=== PATIENT | female | born 1970 | race American Indian/Alaskan Native ===

== ENCOUNTER 2017-06-21 08:31 | Outpatient (CLI) | payer BC ==
--- NOTE | 2017-06-21 09:42 | Cat Scan Report ---
CT HEAD WITHOUT CONTRAST: 06/21/17 08:31:00 CLINICAL: Headache. TECHNIQUE: 2.5-mm noncontrast scans. COMPARISON:None FINDINGS: The ventricles and sulci are normal for age. No abnormal density. No mass or mass effect. No hemorrhage, edema or extra-axial collection. The sinuses and mastoids are clear. Normal orbits and soft tissues. The calvarium and skull base are intact. A right paramedian defect in the anterior ring of C1 is either a remote fracture or congenital anomaly. IMPRESSION: No acute change. 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
== END 2017-06-21 08:32 | disposition home or self-care (01) ==
LOC: SPVIMAG 08:31
PROVIDERS: ATTEND Internal Medicine
DX: R51 Headache (principal)
CPT/HCPCS: 70450

== ENCOUNTER 2019-02-23 02:19 | Emergency (ER) | payer BC ==
[2019-02-23 04:37] LABS: Basophils % (Auto) 0.7 % (0.0-1.8); Eosinophils % (Auto) 0.5 % (0.0-4.3); Hematocrit 39.1 % (30.3-42.9); Hemoglobin 12.7 gm/dl (10.1-14.3); Lymphocytes # (Auto) 1.3 K/mm3 (1.2-5.4); Lymphocytes % (Auto) 37.3 % (13.4-35.0); Mean Corpuscular HGB Conc 33 % (30-34); Mean Corpuscular Volume 87 fl (79-97); Monocytes # (Auto) 0.4 K/mm3 (0.0-0.8); Monocytes % (Auto) 10.7 % (0.0-7.3); Platelet Count 200 K/mm3 (140-440); Red Blood Count 4.51 M/mm3 (3.65-5.03); Red Cell Distribution Width 12.5 % (13.2-15.2)
[2019-02-23 04:47] LABS: INR 1.12 (0.87-1.13)
[2019-02-23 04:51] LABS: Creatine Kinase MB 1.4 ng/mL (0.0-4.0)
[2019-02-23 04:53] LABS: Bilirubin,Urine NEG (Negative); Blood,Urine SM (Negative); Color,Urine Straw (Yellow); Protein,Urine <15 mg/dL mg/dL (Negative); Urobilinogen,Urine < 2.0 mg/dL (<2.0)
[2019-02-23 04:55] LABS: BUN/Creatinine Ratio 16; Blood Urea Nitrogen 11 mg/dL (7-17); Calcium 8.8 mg/dL (8.4-10.2); Hemolysis Index 3
--- NOTE | 2019-02-23 06:42 | Emergency Department Report ---
ED Chest Pain HPI - General Chief Complaint: Chest Pain Stated Complaint: CHEST TIGHTNESS/CHILLS Time Seen by Provider: 02/23/19 06:26 Source: patient Mode of arrival: Ambulatory Limitations: No Limitations - History of Present Illness Initial Comments: Plan 9-year-old female with no previous medical history presents to ED with 1 week history of intermittent chest tightness. Patient reports she traveled to [place] and [facility] last week. While there she began to experience numbness and tingling to the right face and arm, and then she later experienced chest tightness. Patient states these episodes last approximately 10 minutes. Patient denies shortness of breath. Reports associated palpitations, dizziness, feeling as if she is going to pass out. The patient denies any weakness in the right arm, numbness or weakness in her legs, slurred speech or facial droop during these episodes. Patient does report a dull pain in the upper left thigh which is been present before her trip to [facility], however denies any leg swelling. MD Complaint: chest pain -: week(s) (1) Onset: during rest Pain Location: substernal Pain Radiation: none Severity: moderate Severity scale (0 -10): 9 Quality: tightness Consistency: intermittent Improves With: nothing Worsens With: nothing re: denies: nausea, vomting, diaphoresis, dyspnea - Related Data Previous Rx's Medication Instructions Recorded Last Taken Type Terconazole [Terazol 7] 7 applic VG QDAY #7 cream.appl 04/19/18 Unknown Rx metroNIDAZOLE [Flagyl] 500 mg PO Q8HR 7 Days #21 tablet 04/19/18 Unknown Rx Allergies Allergy/AdvReac Type Severity Reaction Status Date / Time No Known Allergies Allergy Unverified 11/25/14 15:30 Heart Score - HEART Score History: Slightly suspicious EKG: Normal Age: 45-65 Risk factors: No known risk factors Troponin: < normal limit HEART Score: 1 ED Review of Systems ROS: Stated complaint: CHEST TIGHTNESS/CHILLS Other details as noted in HPI Comment: All other systems reviewed and negative Constitutional: denies: chills, fever Respiratory: denies: shortness of breath Cardiovascular: chest pain, palpitations Gastrointestinal: denies: abdominal pain, nausea, vomiting Musculoskeletal: other (reports leg pain; denies leg swelling) Neurological: paresthesias. denies: weakness ED Past Medical Hx - Past Medical History Previous Medical History?: No - Surgical History Past Surgical History?: Yes Additional Surgical History: cyst removed from breast - Social History Smoking Status: Never Smoker Substance Use Type: None - Medications Home Medications: Home Medications Medication Instructions Recorded Confirmed Last Taken Type Terconazole [Terazol 7] 7 applic VG QDAY #7 cream.appl 04/19/18 Unknown Rx metroNIDAZOLE [Flagyl] 500 mg PO Q8HR 7 Days #21 tablet 04/19/18 Unknown Rx ED Physical Exam - General Limitations: No Limitations General appearance: alert, in no apparent distress - Head Head exam: Present: atraumatic, normocephalic - Eye Eye exam: Present: normal appearance, EOMI - ENT ENT exam: Present: mucous membranes moist - Neck Neck exam: Present: normal inspection - Respiratory Respiratory exam: Present: normal lung sounds bilaterally. Absent: respiratory distress - Cardiovascular Cardiovascular Exam: Present: regular rate, normal rhythm - GI/Abdominal GI/Abdominal exam: Present: soft. Absent: distended, tenderness - Extremities Exam Extremities exam: Present: normal inspection, full ROM - Neurological Exam Neurological exam: Present: alert, oriented X3, CN II-XII intact. Absent: motor sensory deficit - Psychiatric Psychiatric exam: Present: normal affect, normal mood - Skin Skin exam: Present: warm, dry, intact, normal color ED Course Vital Signs 02/23/19 02/23/19 02/23/19 02:23 02:50 03:15 Temperature 98.3 F 98.0 F Pulse Rate 91 H 79 84 Respiratory 18 15 11 L Rate Blood Pressure 171/108 131/92 Blood Pressure 137/94 [Left] O2 Sat by Pulse 99 98 97 Oximetry 02/23/19 02/23/19 02/23/19 03:30 03:45 04:00 Temperature Pulse Rate 79 77 65 Respiratory 14 13 12 Rate Blood Pressure 132/86 126/86 127/79 Blood Pressure [Left] O2 Sat by Pulse 97 98 97 Oximetry 02/23/19 02/23/19 02/23/19 04:30 04:45 05:00 Temperature Pulse Rate 74 77 66 Respiratory 13 12 12 Rate Blood Pressure 128/89 129/97 116/81 Blood Pressure [Left] O2 Sat by Pulse 99 100 97 Oximetry 02/23/19 02/23/19 02/23/19 05:15 05:45 06:00 Temperature Pulse Rate 64 69 64 Respiratory 13 12 12 Rate Blood Pressure 121/73 114/83 113/77 Blood Pressure [Left] O2 Sat by Pulse 96 97 100 Oximetry 02/23/19 02/23/19 02/23/19 06:15 06:45 08:24 Temperature Pulse Rate 61 84 84 Respiratory 12 18 15 Rate Blood Pressure 116/73 143/90 Blood Pressure 132/89 [Left] O2 Sat by Pulse 99 100 98 Oximetry ED Medical Decision Making - Lab Data Result diagrams: 02/23/19 04:10 02/23/19 04:10 - EKG Data -: EKG Interpreted by Me EKG shows normal: sinus rhythm, axis, intervals, QRS complexes, ST-T waves Rate: normal - EKG Data Interpretation: no acute changes - Radiology Data Radiology results: report reviewed, image reviewed - Medical Decision Making 49-year-old female with intermittent episodes of right face and arm par esthesias, and chest pain over the last week. Patient states one of these episodes over her from sleep this morning. Patient has normal neuro exam. EKG is normal, troponin normal, d-dimer normal. Vital signs are normal, patient in no respiratory distress. Possible anxiety attack. Patient does report that she will be beginning a new job in the next few days with increased responsibilities, this could possibly be causing some anxiety. Patient reports she has an appointment with her PCP on tomorrow. Chest pain referral form faxed to [facility]. Return precautions given. Outpatient follow-up advised. - Differential Diagnosis ACS, PE, anxiety Critical care attestation.: If time is entered above; I have spent that time in minutes in the direct care of this critically ill patient, excluding procedure time. ED Disposition Clinical Impression: Paresthesias, Chest pain Disposition: DC-01 TO HOME OR SELFCARE Is pt being admited?: No Condition: Stable Instructions: Chest Pain (ED), Paresthesia (ED), Anxiety (ED) Referrals: PRIMARY CARE, [Referring] - 24 Hours Time of Disposition: 08:12
--- NOTE | 2019-02-23 06:59 | XRay Report ---
CHEST 1 VIEW 02/23/2019 6:37 AM INDICATION / CLINICAL INFORMATION: chest pain. COMPARISON: 05/01/08 FINDINGS: SUPPORT DEVICES: None. HEART / MEDIASTINUM: No significant abnormality. LUNGS / PLEURA: No significant pulmonary or pleural abnormality. No pneumothorax. ADDITIONAL FINDINGS: No significant additional findings. IMPRESSION: 1. No acute findings. Signer Name: Castillo Hess MD Signed: 02/23/2019 6:54 AM Workstation Name: [id number]
[2019-02-23 08:25] VITALS: BP 132/89
== END 2019-02-23 08:26 | disposition home or self-care (01) ==
LOC: ED 02:19
DX: R07.89 Other chest pain (principal); R20.2 Paresthesia of skin; R20.0 Anesthesia of skin; R42 Dizziness and giddiness; Z98.890 Other specified postprocedural states
CPT/HCPCS: 36415; 71045; 80048; 81001; 82550; 82553; 84484; 84703; 85025; 85379; 85610; 93005; 93010

== ENCOUNTER 2019-03-01 20:51 | Emergency (ER) | payer BC ==
[2019-03-01 23:20] LABS: Hemoglobin 12.3 gm/dl (10.1-14.3); Mean Corpuscular HGB Conc 33 % (30-34); Mean Corpuscular Volume 87 fl (79-97); Platelet Count 189 K/mm3 (140-440); Red Blood Count 4.23 M/mm3 (3.65-5.03); Red Cell Distribution Width 12.6 % (13.2-15.2)
[2019-03-02] MEDS ORDERED: ACETAMINOPHEN 500 MG TAB PO ONE (00:05)
[2019-03-02] MEDS ORDERED: KETOROLAC 30 MG/1 ML INJ IM ONE (00:05)
[2019-03-02 00:06] LABS: Alanine Aminotransferase 12 units/L (7-56); Albumin 4.4 g/dL (3.9-5); BUN/Creatinine Ratio 16; Blood Urea Nitrogen 11 mg/dL (7-17); Calcium 8.7 mg/dL (8.4-10.2); Hemolysis Index 5
[2019-03-02 00:07] LABS: Basophils % (Manual) 0 % (0.0-1.8); Eosinophils % (Manual) 0 % (0.0-4.3); Total Cells Counted 100
[2019-03-02 00:08] LABS: Large Platelets 1+; Platelet Estimate Consistent w Auto; RBC Morphology Normal
--- NOTE | 2019-03-02 01:40 | Emergency Department Report ---
ED General Adult HPI - General Chief complaint: Skin/Abscess/Foreign Body Stated complaint: LEFT ARM NUMBNESS/LUMP Source: patient Mode of arrival: Ambulatory Limitations: No Limitations - History of Present Illness Initial comments: Patient is a 49-year-old female with no past medical history who presents to the ED with complaint of acute onset persistent left forearm pain for the last 1 week after heavy lifting at work. Patient also complains of diffuse chest wall tightness intermittently for the last 1 month. Patient denies fall, traumatic injury, dizziness, headache, chest pain, shortness of breath, abdominal pain, diaphoresis, fever, chills, cough, neck pain, back pain, abdominal pain, numbness and tingling or weakness of upper extremities bilaterally or change in vision and syncope or palpitations. MD Complaint: Left forearm pain; chest tightness -: Sudden, week(s) (1) Location: upper extremity (left forearm) Radiation: non-radiation Severity scale (0 -10): 1 Quality: aching, sharp Consistency: constant Improves with: none Worsens with: none Associated Symptoms: denies other symptoms, chest pain. denies: confusion, cough, diaphoresis, headaches, loss of appetite, malaise, rash, shortness of breath, syncope, weakness Treatments Prior to Arrival: none - Related Data Previous Rx's Medication Instructions Recorded Last Taken Type Terconazole [Terazol 7] 7 applic VG QDAY #7 cream.appl 04/19/18 Unknown Rx metroNIDAZOLE [Flagyl] 500 mg PO Q8HR 7 Days #21 tablet 04/19/18 Unknown Rx Cyclobenzaprine [Flexeril] 10 mg PO Q8H PRN #21 tablet 03/02/19 Unknown Rx Naproxen 500 mg PO Q12H PRN #20 tablet 03/02/19 Unknown Rx Allergies Allergy/AdvReac Type Severity Reaction Status Date / Time No Known Allergies Allergy Verified 03/01/19 20:54 ED Review of Systems ROS: Stated complaint: LEFT ARM NUMBNESS/LUMP Other details as noted in HPI Constitutional: denies: chills, fever Eyes: denies: eye pain, eye discharge, vision change ENT: denies: ear pain, throat pain Respiratory: denies: cough, shortness of breath, wheezing Cardiovascular: chest pain (chest tightness). denies: palpitations Endocrine: no symptoms reported Gastrointestinal: denies: abdominal pain, nausea, diarrhea Genitourinary: denies: urgency, dysuria, discharge Musculoskeletal: arthralgia (left forearm pain), myalgia. denies: back pain, joint swelling Skin: denies: rash, lesions Neurological: denies: headache, weakness, paresthesias Psychiatric: denies: anxiety, depression Hematological/Lymphatic: denies: easy bleeding, easy bruising ED Past Medical Hx - Past Medical History Previous Medical History?: No - Surgical History Past Surgical History?: Yes Additional Surgical History: cyst removed from breast - Social History Smoking Status: Former Smoker Substance Use Type: None - Medications Home Medications: Home Medications Medication Instructions Recorded Confirmed Last Taken Type Terconazole [Terazol 7] 7 applic VG QDAY #7 cream.appl 04/19/18 Unknown Rx metroNIDAZOLE [Flagyl] 500 mg PO Q8HR 7 Days #21 tablet 04/19/18 Unknown Rx Cyclobenzaprine [Flexeril] 10 mg PO Q8H PRN #21 tablet 03/02/19 Unknown Rx Naproxen 500 mg PO Q12H PRN #20 tablet 03/02/19 Unknown Rx ED Physical Exam - General Limitations: No Limitations General appearance: alert, in no apparent distress - Head Head exam: Present: atraumatic, normocephalic, normal inspection - Eye Eye exam: Present: normal appearance, PERRL, EOMI Pupils: Present: normal accommodation - ENT ENT exam: Present: normal exam, normal orophraynx, mucous membranes moist, TM's normal bilaterally, normal external ear exam - Neck Neck exam: Present: normal inspection, full ROM - Respiratory Respiratory exam: Present: normal lung sounds bilaterally. Absent: respiratory distress, wheezes, rhonchi, chest wall tenderness, accessory muscle use, decreased breath sounds - Cardiovascular Cardiovascular Exam: Present: regular rate, normal rhythm, normal heart sounds. Absent: systolic murmur, diastolic murmur, rubs, gallop - GI/Abdominal GI/Abdominal exam: Present: soft, normal bowel sounds. Absent: distended, tenderness, hyperactive bowel sounds, hypoactive bowel sounds, organomegaly - Extremities Exam Extremities exam: Present: normal inspection, tenderness (left forearm tenderness to palpation), normal capillary refill - Back Exam Back exam: Present: normal inspection, full ROM. Absent: tenderness, muscle spasm, paraspinal tenderness - Neurological Exam Neurological exam: Present: alert, oriented X3, CN II-XII intact, normal gait, reflexes normal - Psychiatric Psychiatric exam: Present: normal affect, normal mood - Skin Skin exam: Present: warm, dry, intact, normal color. Absent: rash ED Course Vital Signs 03/01/19 03/02/19 03/02/19 21:54 01:16 02:23 Temperature 97.9 F 97.9 F Pulse Rate 84 67 Respiratory 18 16 20 Rate Blood Pressure 194/102 Blood Pressure 132/93 [Left] O2 Sat by Pulse 97 100 Oximetry 03/02/19 05:48 Temperature Pulse Rate 67 Respiratory 16 Rate Blood Pressure Blood Pressure [Left] O2 Sat by Pulse 100 Oximetry ED Medical Decision Making - Lab Data Result diagrams: 03/01/19 23:06 03/01/19 23:06 - EKG Data EKG shows normal: sinus rhythm Rate: normal - EKG Data Interpretation: normal EKG 05/03/19 20:03 EKG shows normal sinus rhythm with ventricular rate of 65 bpm, and no ST or T- wave abnormalities. - Medical Decision Making This is a 49-year-old female with no past medical history who presented to the ED with chest tightness for 1 month and left forearm pain for 1 week after lifting at work. In the ED, patient is alert and oriented 3 and is not in distress. Lab test results were reviewed and are nonactionable including d- dimer and troponin levels. EKG shows normal sinus rhythm with ventricular rate of [address] or T-wave abnormalities. Patient was treated for pain and discharged home on pain medications the patient's risk factors, with a heart score of 1. Patient was discharged home on pain medications and advised follow- up with her primary care physician in 5-7 days for reevaluation, or return to the ED immediately if symptoms get worse. - Differential Diagnosis left forearm muscle strain; DJD; Cervical radiculopathy; ACS Critical care attestation.: If time is entered above; I have spent that time in minutes in the direct care of this critically ill patient, excluding procedure time. ED Disposition Clinical Impression: Muscle spasm Muscle strain of left forearm Qualifiers: Encounter type: initial encounter Qualified Code(s): S56.912A - Strain of unspecified muscles, fascia and tendons at forearm level, left arm, initial encounter Disposition: TO HOME OR SELFCARE Is pt being admited?: No Does the pt Need Aspirin: No Condition: Stable Instructions: Muscle Strain (ED), Musculoskeletal Pain (ED), Muscle Spasm (ED) Additional Instructions: Take medications for pain as needed, follow up with your primary care physician in 7-10 days for reevaluation. Return to the ED immediately if symptoms get worse Prescriptions: Cyclobenzaprine [Flexeril] 10 mg PO Q8H PRN #21 tablet PRN Reason: Muscle Spasm Naproxen 500 mg PO Q12H PRN #20 tablet PRN Reason: Pain , Severe (7-10) Referrals: PRIMARY CARE, [Primary Care Provider] - 3-5 Days Time of Disposition: 01:38 Print Language: IVORIAN
[2019-03-02 02:24] VITALS: BP 132/93
== END 2019-03-02 04:25 | disposition home or self-care (01) ==
LOC: ED 20:51
DX: S56.912A Strain of unspecified muscles, fascia and tendons at forearm level, left arm, initial encounter (principal); M62.838 Other muscle spasm; Z87.891 Personal history of nicotine dependence; X58.XXXA Exposure to other specified factors, initial encounter; Y93.89 Activity, other specified; Y92.89 Other specified places as the place of occurrence of the external cause; Y99.8 Other external cause status
CPT/HCPCS: 36415; 80053; 84436; 84443; 84484; 85007; 85025; 85379; 93005; 93010; J1885